=== PATIENT | female | born 1975 | race Caucasian/White ===

== ENCOUNTER → 2017-08-02 13:40 | Outpatient (CLI) | payer BC, SELFPAY ==
--- NOTE | 2017-08-02 13:40 | DT_ITS ---
This patient was seen during an EMR downtime July 31, 2017 - August 07, 2017. This patient may have a combination of paper and electronic documentation or all paper documentation. All documentation is viewable within the e-chart portion of [employer] for each patient visit.
== END ==
PROVIDERS: Family Provider Family Medicine; PCP Family Medicine; Visit Provider Family Medicine
DX: Z01.84 Encounter for antibody response examination (principal)
CPT/HCPCS: 36415; 86787

== ENCOUNTER → 2017-08-23 10:09 | Outpatient (CLI) | payer BC, SELFPAY ==
[2017-08-24 16:28] LABS: Mumps Antibody,IgG < 9.0 AU/mL (Immune >10.9); Rubeola IgG Ab 39.6 AU/mL (Immune >29.9)
== END ==
PROVIDERS: Family Provider Family Medicine; PCP Family Medicine; Visit Provider Family Medicine
DX: Z01.84 Encounter for antibody response examination (principal)
CPT/HCPCS: 36415; 86735; 86765

== ENCOUNTER 2020-03-07 01:49 | Emergency (ER) | payer BC, SELFPAY ==
[2020-03-07 01:50] VITALS: BP 112/78; PULSE 114; RESP 18; TEMP 36.5; O2SAT 98; BMI 31.8
--- NOTE | 2020-03-07 01:56 | ED.DCSUM_ITS ---
History of Present Illness Chief Complaint: Upper Extremity Injury Informant: Patient Narrative: Patient stated she injured her shoulder. She states she was doing laundry tonight and lost her balance and fell into the wall. She stated she jammed her right shoulder. She is having pain in the right shoulder with movement. No injury elsewhere. She stated she has had a few alcoholic drinks tonight. Current severity is moderate. Worse by movement. [place] a pop. No previous shoulder injury. No home treatment. Past Medical History - Allergies and Home Meds Allergies/Adverse Reactions: Allergies No Known Allergies Allergy (Verified 03/07/20 01:49) Primary Care Physician: Hang Jane DO [STAFF PHYSICIAN] - Prior records reviewed: Yes Past Medical History: - - Reviewed Surgical History: - - Reviewed Lives: With Family Smoking Status: Current every day smoker Alcohol: Occasional Drugs: None Review of Systems General: Denies: Chills, Fever, Sweats Eyes: Denies: Visual changes - bilaterally, Diplopia ENT: Denies: Rhinorrhea, Sore throat Cardiovascular: Denies: Chest pain, Palpitations Respiratory: Denies: Dyspnea, Cough, Dyspnea on exertion Gastrointestinal: Denies: Abdominal pain, Nausea, Vomiting, Diarrhea, Melena, Hematochezia Genitourinary: Denies: Dysuria, Hematuria, Frequency Musculoskeletal: Reports: Extremity Pain. Denies: Back pain Skin: Denies: Rash, Wounds Neurological: Denies: Headache, Weakness, Numbness Physical Exam Vital Signs/Narrative: Vital Signs Temp Pulse Resp BP Pulse Ox 03/07/20 01:50 97.7 F L 114 H 18 112/78 98 General: Well nourished, Well developed, No Acute Distress Head: Normocephalic, Atraumatic Eyes: Perrl, EOMI ENT: Moist mucous membranes, No rhinorrhea Neck: Supple, Nontender Cardiovascular: Regular rate, Regular rhythm, No murmurs Respiratory: No distress, CTA bilaterally, Chest nontender Abdomen: Soft, Nontender, Nondistended, Normal bowel sounds Back: Nontender, Normal Inspection Extremities: No edema, Tenderness - Numbness in the right shoulder deltoid diffusely. No tenderness of the clavicle or other structures in the neck. Distal arm exam normal. Decreased range of motion of the shoulder secondary to pain. Skin: Normal color, No rash Neurological: Alert, Oriented x3, Cranial nerves II-XII grossly intact, Normal Strength, Normal Sensation Psychological: Normal affect, Normal Mood Diagnostic/Tx/Re-eval - Medical Decision Making Give injection of morphine and ice pack. X-ray of the right shoulder obtained. In my interpretation the x-ray shows a humeral head fracture. Patient given a sling and swath and will follow up with orthopedics as an outpatient. Will be given Percocet for home. Will rest and ice ED Disposition - Plan for ED Patient: Disposition: Home or Assisted Living Diagnosis: Shoulder fracture, right Instructions: ED Fracture, Shoulder Prescriptions: Oxycodone HCl/Acetaminophen [Percocet 5/325] 1 - 2 tab PO Q6H PRN PRN 3 Days #12 tab PRN Reason: Pain Prescription Printed Referrals: Hang Jane DO [STAFF PHYSICIAN] -
--- NOTE | 2020-03-07 02:06 | RAD_ITS ---
HISTORY: right shoulder injury after fall. ADDITIONAL HISTORY: None provided. EXAMINATION/TECHNIQUE: XR Shoulder Min 2 Views Right Number of images including paperwork: 2 COMPARISON: None FINDINGS: BONES: Mildly impacted fracture of the surgical neck of the right humerus. Lucency in the region of the greater tuberosity, not well evaluated due to superimposition on both views but suggestive of nondisplaced fracture.. JOINTS: No subluxation. SOFT TISSUES: No distinct foreign body. RAD/Shoulder min 2 Views IMPRESSION: Right proximal humerus fracture. at 0237 Reported and signed by: Aaliyah Flowers MD Electronically Signed: Aaliyah Flowers MD at 2:37 EST Tel , Service support ,
[2020-03-07] MEDS: Morphine 4 MG/ML Syringe 2 MG IM (02:24)
[2020-03-07 03:08] VITALS: BP 109/74
== END 2020-03-07 03:09 | disposition home or self-care (01) ==
LOC: ED 02:23
PROVIDERS: Emergency Provider Emergency Medicine; PCP Family Medicine
DX: S42.291A Other displaced fracture of upper end of right humerus, initial encounter for closed fracture (principal); W01.198A Fall on same level from slipping, tripping and stumbling with subsequent striking against other object, initial encounter; Y93.E2 Activity, laundry; Y92.9 Unspecified place or not applicable; Y99.9 Unspecified external cause status; F17.200 Nicotine dependence, unspecified, uncomplicated
CPT/HCPCS: 73030; 96372; 99282

== ENCOUNTER 2020-03-12 14:07 | Observation (INO) | payer BC, SELFPAY ==
[2020-03-12] VITALS (10 sets, daily range): BP systolic 106–130; BP diastolic 60–98; PULSE 72–108; RESP 16–18; TEMP 36.1–37.2; O2SAT 96–98; BMI 34.0; BMI 33.8; BMI 33.9
[2020-03-12] MEDS: Lactated Ringers 1,000 ML 100 ML IV ×3 (10:35→16:23)
--- NOTE | 2020-03-12 11:30 | RAD_ITS ---
STUDY: X-RAY - RIGHT HUMERUS REASON FOR EXAM: ORIF of right humeral fracture. TECHNIQUE: 3 intraoperative images of the humerus. COMPARISON: Radiographs 03/09/2020. FINDINGS: There is an orthopedic plate and screws transfixing a proximal humeral fracture. 62 seconds of fluoroscopy time was used. Electronically Signed: Jaguar Bond MD at 14:47 EST Tel , Service support , RAD/Humerus min 2 Views
--- NOTE | 2020-03-12 11:33 | PCM.HP.BLA ---
History and Physical Date of Admission: 03/12/20 Intake Intake Visit Reasons: RIGHT SHOULDER Allergies No Known Allergies Allergy (Verified 03/07/20 01:49) [facility] Social History Smoking Status: Current every day smoker HPI RIGHT SHOULDER: Details: Parts of this documentation were recorded by a scribe, this documentation accurately reflects the service provided and the decisions made by me, Dr. Hang Jane, DO 03/09/20 1400. FORTINO REBOLLAR is a 44 year old F NEW patient here today for right shoulder fx. DOI: 03/07/2020. States that she had some drinks and she was putting her clothes on and lost her balance and fell into the fall with all of her weight on the right anterior shoulder. She states that she heard a crack over her shoulder and had instant pain. Denies numbness, tingling or other associated symptoms. SHe is have generalized shoulder pain with any shoulder movement. She is also having right elbow pain. Ortho Exam General General: Yes no acute distress Neurologic: Yes alert, Yes oriented x3 Psychologic: Yes reasonable and appropriate Right Shoulder Date of injury: 03/07/20 Skin/Wound: Yes ecchymosis, No erythema, No swelling SHOULDER: neurovascularly intact including axillary + swelling good pulses throughout upper right extremity Supplemental Info 03/09/2020 x-ray right shoulder displaced three-part proximal humerus fracture surgical neck greater tuberosity with Valgus angulation and medial displacement Assessment & Plan Problems 1. Closed displaced fracture of surgical neck of right humerus, unspecified fracture morphology, initial encounter S42.211A 2. Closed displaced fracture of greater tuberosity of right humerus, initial encounter S42.251A Plan Personally reviewed patients x-rays of the right shoulder. Patient educated that she has displaced impacted surgical neck fx of the humerus along with a displaced fx of the greater tuberosity. Educated that she does not have any fx of the elbow. Patient educated that it is recommended that this fx is surgically repaired because she will have better ROM. Educated that if she does not have surgery then she will be at a increased risk of pain throughout life, and decreased ROM. Reviewed the pre-operative plans with the patient. Risks and benefits of the procedure were fully explained, including but not limited to infection, neurovascular injury, continued pain, arthritis, stiffness, need for further surgery, re-injury, DVT, PE, general risks of anesthesia, and loss of limb or life. The patient understands all the risks and does wish to proceed with written consent for right humerus ORIF, repair as indicated. She will be able to preform ROM after surgery. She will need to be in PT after surgery. Instructed to stop NSAIDs now in anticipation for surgery 03/12/2020. Follow up 2 weeks post op or sooner if pain, swelling, numbness or associated symptoms, or concerns develop. All questions answered. Patient in agreement of plan. Orders Orders: Shoulder min 2 Views Today S42.301A Elbow 2 Views Today S49.91XA Coding Diagnoses Closed displaced fracture of surgical neck of right humerus, unspecified fracture morphology, initial encounter S42.211A ??Encounter type: initial encounter ??Fracture alignment: displaced ??Fracture morphology: unspecified fracture morphology ??Fracture type: closed ??Laterality: right Closed displaced fracture of greater tuberosity of right humerus, initial encounter S42.251A ??Encounter type: initial encounter ??Fracture alignment: displaced ??Fracture type: closed ??Laterality: right I have re-examined the patient. There are no clinical changes since date of exam Procedure Criteria Procedure Type: Elective COVID Risk Discussion: The surgeon/proceduralist and patient have discussed in detail the risk of exposure to and/or potential harm posed by the COVID-19 virus with having a surgery/procedure at this time versus the risk of delaying the surgery/procedure. It is not possible to know either the risk of delaying the surgery or procedure or chance of getting an infection with perfect accuracy, but a joint decision was made between the patient and the surgeon/proceduralist to proceed at this time with the scheduled surgery/procedure as indicated on the consent form.
[2020-03-12] MEDS: Cefazolin 2 GM in 0.9% Normal Saline 100 ML IV (11:35)
--- NOTE | 2020-03-12 14:10 | OP.PCM_ITS ---
Report of Operation Date of Procedure: 03/12/20 Description of Surgical Findings:: Preoperative diagnosis: Right displaced surgical neck greater tuberosity fracture Postoperative diagnosis: Same Procedure: Open reduction internal fixation right proximal humerus Implants: Synthes proximal humerus plate Anesthesia: General with interscalene block EBL: 200 Complications: None Condition: Stable to PACU Indication for procedure: 44-year-old female patient who was drinking and fell onto her right shoulder. X-rays demonstrated the aforementioned fracture we did discuss operative versus nonoperative intervention risk benefits and alternatives were reviewed including risk of bleeding infection nerve, artery, b one, tissue damage, blood clot need for further surgery and continued pain, stiffness. We also discussed expected postoperative course and postoperative limitations. Procedure: Patient was met in the preoperative holding area once again the operative extremity was identified by both patient and physician was marked. patient met anesthesia brought back to the operating room will car transfer the operative table in supine position. anesthesia was started. The patient was then positioned in a beachchair configuration . we brought in fluoroscopy to ensure that AP and Y projections could be obtained through the table. patient was then patient draped in the usual sterile fashion and a timeout was called into the proper patient procedure and extremity are being contemplated. A 10 blade scalpel was used to make a incision for a deltopectoral approach electrocautery was used for subcutaneous dissection until the deltopectoral interval was reached . A Nixon was used to elevate the deltoid off of the proximal humerus the clavipectoral fascia was incised and a Guo retractor was placed beneath the conjoined tendon with attention not to retract too hard to injure the musculocutaneous nerve. The fracture was then visualized and with forward flexion in the sagittal plane and traction reduction was performed. K wires were placed in the proximal humeral head to act as joysticks to aid in the reduction as well we then positioned a plate laterally temporarily fixed it with K wires and under fluoroscopic visualization placed a cortical screw in the shaft we then placed locking screws in the proximal humeral head an additional 2 cortical screws were placed in the shaft this was checked in both AP and lateral projections to ensure screw placement within the humeral head and shaft. The air was no need for additional FiberWire fixation of the rotator cuff as the remainder of the cuff remained intact this point the wound was thoroughly irrigated with Betadine rinse and several liters of Pulsavac irrigation followed by an Aricept rinse which was allowed to sit and also washed with irrigation we then closed the subcutaneous tissue with 0-0 Vicryl followed by 2-0 Vicryl and lu in the skin followed by Xeroform 4 x 4 ABD and [place] she was placed in a simple sling and was brought back to the PACU in stable condition all counts were correct.
[2020-03-12] MEDS: Cefazolin 1 GM/50 ML BAG IV ×2 (15:36→22:08)
[2020-03-12] MEDS: HYDROmorphone 0.5 MG/0.5 ML SYRINGE IV ×2 (17:41→20:18)
[2020-03-12] MEDS: HYDROcodone Bitartrate/Apap 5/325 Tablet PO (19:10)
[2020-03-12] MEDS: Ondansetron 4 MG/2 ML Vial IV (20:22)
[2020-03-12] MEDS: Ibuprofen 600 MG Tablet PO (22:08)
[2020-03-12] MEDS: HYDROmorphone 1 MG/ML Syringe 1.5 MG IV (22:13)
[2020-03-13 00:28] VITALS: BP 121/62; PULSE 88; RESP 16; TEMP 37.3; O2SAT 97
[2020-03-13] MEDS: HYDROmorphone 1 MG/ML Syringe 1.5 MG IV ×2 (01:25→04:43)
[2020-03-13] MEDS: HYDROcodone Bitartrate/Apap 5/325 Tablet PO (02:50)
[2020-03-13 04:31] VITALS: BP 110/62; PULSE 78; RESP 16; TEMP 36.7; O2SAT 96
[2020-03-13] MEDS: Cefazolin 1 GM/50 ML BAG IV ×2 (06:06→08:29)
[2020-03-13] MEDS: Aspirin 81 MG TAB.CHEW PO (06:07)
[2020-03-13] MEDS: Ibuprofen 600 MG Tablet PO (06:07)
--- NOTE | 2020-03-13 07:45 | PCM.PN.ORT ---
Subjective: Seen and examined doing better today had pain control issues last night better now with medication adjustments no nausea vomiting shortness of breath chest pain denies any numbness in her right upper extremity admits to a numb spot on her tongue. Passing gas and eating food okay - Physical Exam Vitals/I&O's: Vital Signs Temp Pulse Resp BP Pulse Ox 98.1 F 78 16 110/62 96 03/13/20 04:31 03/13/20 04:31 03/13/20 04:31 03/13/20 04:31 03/13/20 04:31 Oxygen Delivery Method Room Air Weight: 198 lb 6.656 oz Body Mass Index (BMI) 33.8 Intake and Output for Last 24 Hours 03/11/20 03/12/20 03/13/20 23:59 23:59 23:59 Intake Total 2165 / 2165 384.17 / 384.17 Output Total 5 / 5 Balance 2160 / 2160 384.17 / 384.17 General: Alert, Oriented x3, Cooperative, No apparent distress Extremities: - - Right upper extremity swollen compartments soft intact sensation over axillary nerve intact contraction of deltoid no gross motor or sensory deficits distally palpable radial pulse intact sensation to light touch all dermatomes. No good morning has just phone calls last significant swelling in hand Microbiology Past 72 Hours 03/11/20 09:42 Interface Orders SARS-CoV-2 Antigen (Rapid) - Final Current Medications Hydrocodone Bitart/Acetaminophen (Hydrocodone Bitartrate/Apap 5/325 Tablet) 2 tablet PO Q6H PRN PRN PRN Reason: Pain Score 4-10 Last Admin: 03/13/20 02:50 Dose: 2 tablet Documented by: Aspirin (Aspirin 81 Mg Tab.Chew) 81 mg PO BIDCM [facility] Last Admin: 03/13/20 06:07 Dose: 81 mg Documented by: Hydromorphone HCl (Hydromorphone 1 Mg/Ml Syringe) 1.5 mg IV Q3H PRN PRN PRN Reason: Pain Score 1-10 Last Admin: 03/13/20 04:43 Dose: 1.5 mg Documented by: Lactated Ringer's () 1,000 mls @ 100 mls/hr IV .Q10H [facility] Last Infusion: 03/13/20 06:36 Dose: 15 mls/hr Documented by: Ibuprofen (Ibuprofen 600 Mg Tablet) 600 mg PO Q8 [facility] Last Admin: 03/13/20 06:07 Dose: 600 mg Documented by: Multivitamins/Minerals (Multivitamins,Ther W-Minerals Tablet) 1 tablet PO DAILYCM [facility] Ondansetron HCl (Ondansetron 4 Mg/2 Ml Vial) 4 mg IV Q6H PRN PRN PRN Reason: Nausea Last Admin: 03/12/20 20:22 Dose: 4 mg Documented by: Sodium Chloride (0.9% Saline Lock 10 Ml Syringe) 10 - 40 ml IV UD PRN PRN Reason: SALINE FLUSH Zolpidem Tartrate (Zolpidem Tartrate 5 Mg Tablet) 5 mg PO QHS PRN PRN PRN Reason: SLEEP Medical Necessity - Tobacco Use Smoking Status: Current every day smoker Tobacco Use: Cigarettes Assessment/Plan Postoperative day #1 right proximal humerus ORIF Neurovascular intact pain controlled now we will have physical therapy see her start with active assisted range of motion progressed to active as tolerated no weightbearing right upper extremity encourage at least pendulum exercises elbow range of motion initially and progress as tolerated will follow-up in the office in 2 weeks for a wound check
--- NOTE | 2020-03-13 08:00 | PCM.DC.ORTHO ---
Discharge Diet: No Restrictions Additional Instructions: Keep dressing on clean dry and intact for 72 hours postop. Do not get incision wet during this time or dressing. After 72 hours may remove dressing and begin showering daily with antibacterial soap however do not completely submerge incision in tub for 3 weeks. Do not remove Steri-Strips underneath dressing. Nonweightbearing right upper extremity begin with pendulum exercises to shoulder and elbow range of motion immediately 3 times a day when able progress to active assisted range of motion then active range of motion. Do not push pull or lift anything with operative extremity encourage finger and wrist elbow and shoulder range of motion as tolerated. Should begin physical therapy early next week will have office contact you to coordinate. Do not take medications outside of what was prescribed without discussion with provider. Encourage fluid intake and small amount of food with pain medication to avoid constipation. If constipation does occur with stool softener that was ordered recommend milk of magnesia [id number]. Follow-up with Dr. Jane 2 weeks call with any questions or concerns. Allergies/Adverse Reactions: Allergies No Known Allergies Allergy (Verified 03/12/20 10:20) Medications to take at Discharge Acetaminophen [Tylenol Extra Strength] 500 - 1,000 mg PO Q6H PRN PRN 03/09/20 Multivitamin with Minerals [Multiple Vitamin] 1 ea PO DAILY 03/09/20 oxycodone 5 mg tablet 5 - 10 mg PO Q6H PRN #56 tab 03/09/20 Acetaminophen [Tylenol Extra Strength] 1,000 mg PO Q6H PRN #100 tab 03/13/20 Aspirin [Aspirin EC] 81 mg PO BID #30 tablet. 03/13/20 Docusate Sodium [Colace] 100 mg PO BID #60 cap 03/13/20 Ondansetron HCl [Zofran] 4 mg PO Q6H PRN PRN 5 Days #15 tab 03/13/20 RX: Oxycodone [Oxyir] 5 mg PO Q4H PRN PRN #60 tablet 03/13/20 The following prescriptions were given: Aspirin [Aspirin EC] 81 mg PO BID #30 tablet. Docusate Sodium [Colace] 100 mg PO BID #60 cap Transmission Status: Pending to [facility] RX: Oxycodone [Oxyir] 5 mg PO Q4H PRN PRN #60 tablet PRN Reason: Pain Score 6-10 Transmission Status: Sent to [facility] Acetaminophen [Tylenol Extra Strength] 1,000 mg PO Q6H PRN #100 tab Transmission Status: Pending to [facility] Ondansetron HCl [Zofran] 4 mg PO Q6H PRN PRN 5 Days #15 tab PRN Reason: Nausea Transmission Status: Pending to [facility] Primary Care Physician: Saqib Syed MD [Primary Care Provider] - Test Results: Test results from this visit will be discussed in further detail at your follow-up appointment, if applicable. Please Follow Up With: Hang Jane DO When: 2 weeks
[2020-03-13 08:19] VITALS: BP 100/56; PULSE 69; RESP 16; TEMP 36.7; O2SAT 97
[2020-03-13] MEDS: oxyCODONE 5 MG Tablet 10 MG PO (08:25)
[2020-03-13] MEDS: Multivitamins,Ther W-Minerals Tablet 1 TABLET PO (08:29)
[2020-03-13] MEDS: Docusate Sodium 100 MG Capsule PO (08:29)
== END 2020-03-13 11:19 | disposition home or self-care (01) ==
LOC: SDC 14:23 → MS3 14:23
PROVIDERS: Admitting Provider Orthopaedic Surgery; PCP Family Medicine; Referring Provider Orthopaedic Surgery; Visit Provider Orthopaedic Surgery
PROC: (CPT 23615; principal; 2020-03-12 11:10)
DX: S42.251A Displaced fracture of greater tuberosity of right humerus, initial encounter for closed fracture (principal); W18.30XA Fall on same level, unspecified, initial encounter; Y93.89 Activity, other specified; Y92.9 Unspecified place or not applicable; Y99.9 Unspecified external cause status; S42.211A Unspecified displaced fracture of surgical neck of right humerus, initial encounter for closed fracture; Z20.828 Contact with and (suspected) exposure to other viral communicable diseases; F17.210 Nicotine dependence, cigarettes, uncomplicated
CPT/HCPCS: 01630; 23615; 64450; 73060; 76000; 87426; 96361; 96365; 96366; 96375; 96376; 97166; 99218; 99251; 99406; C1713; C9803; J7120; G0378; G0379; G0463; J2405

== ENCOUNTER 2020-05-21 10:00 | Outpatient (RCR) | payer BC, SELFPAY ==
[2020-03-12 16:29] VITALS: BMI 33.8
--- NOTE | 2020-03-24 10:36 | HP.PTEVAL_ITS ---
Patient's Visit Information FORTINO REBOLLAR is a 44 year old F referred to Physical Therapy by Dr. Hang Jane DO with a diagnosis of R proximal humerus ORIF. Date of Evaluation: 03/17/20 Physical Therapist: Abel Sharma DPT - Visit Plan Frequency: 2x /Week Duration: 4-6 Weeks Plan: Start with AAROM exercises progressing further ROM as tolerated. Progress To AROM as able. May use ice for pain control if needed. - Subjective Pt. is here today for her initial evaluation with diagnosis of R proximal humerus ORIF. DOS 03/12/20. Pt. reports falling and resulting in a proximal humeral fracture. Pt. arrives today with sling on. Pt. reports spacing her pain medication out, but has been tolerating her surgery well. She denies N/T, no radiating pain. 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 Pt. is currently NWBing on her R UE. Pt. has been doing her HEP prescribed by her doctor without issues, except with is having some issues with wall walks. Pt. is hopeful to progress her ROM and get back to all recreational activities without limitations. - Pain R shoulder Pain Intensity (Out of 10): 2 Pain Intensity Range: 2, 6 - Objective POSTURE: Pt. keeps her R UE in guarded posture. Anterior translated shoulder. PALPATION: Pt. has tenderness at anterior shoulder, normal healing incision noted. NEURO: normal throughout. Normal sensation, normal DTR bilaterally. ROM: PROM: R shoulder- flexion 135deg, abd 110deg, ER at side 20deg, IR not tested. AAROM: R shoulder- flexon 145deg, abd 110deg, functional IR sacrum. - Goals Goal 1:: LTG: pt. to be I with HEP. Goal 2:: STG: Pt. to have full AAROM of her R shoulder without incerase in symptoms. Goal Time Frame: 2-4 Weeks Goal 3:: LTG: Pt. to have full R shoulder AROM without increase in symptoms. Goal Time Frame: 4-6 Weeks Goal 4:: STG: pt. to sleep throughout the night without increase in symptoms. Goal Time Frame: 2-4 Weeks Goal 5:: LTG: Pt. to have increased R UE strength to 4+/5 throughout with out increase in symptoms. Goal Time Frame: 6-8 Weeks - Rehabilitation Potential Physical Therapy Diagnosis: Pt. has signs and symptoms consistent with R proximal humerus fracture with subsequent ORIF. Pt. has subsuquent hypombility, pain and weakness. Pt. is wearing her sling as prescribed. Pt. would benefit from PT to work on her ROM progresing to AAROM as tolerated. Rehabilitation Potential: Excellent - Anticipated Interventions Patient/Client Instruction: Educate patient on: Condition, Plan of Care, Risk Factors, Benefits of Fitness Program For the Purpose of:: To foster healthy habits, To improve decision making, To facilitate caregiver knowledge, To improve self management, To prevent re- injury, To improve ability to perform tasks related to life management, To impro ve tolerance to ADL's Therapeutic Exercise to Include: Strength training, Power training, Endurance training, Postural training, Flexibilty training, Passive ROM, Active ROM, Scapular Strength/Stabilization For the Purpose of:: To decrease pain, To decrease swelling/inflammation, To increase ROM, To improve nutrient delivery to tissue, To increase oxygenation perfusion, To improve muscle performance and motor function, To improve health of tissue, To decrease soft tissue restriction, To increase flexibility/ROM Cryotherapy (ice pack, ice massage): Yes For the Purpose of:: To decrease pain, To decrease swelling/inflammation, To increase ROM, To improve nutrient delivery to tissue Thank you for the opportunity to evaluate your patient. For Medicare and Medicare HMO plans, please review the plan of care and approve it. It will need to be FAXED BACK to us at [phone] for Medicare purposes. For Medicare only, by signing this I certify the plan of care. Please let me know if there are questions or concerns regarding this plan of care. Physician Signatur e: Date:
--- NOTE | 2020-04-17 12:44 | HP.PTREVAL_ITS ---
Dr. Hang Jane, DO, It has been my pleasure to treat FORTINO REBOLLAR over the last 6 visits for R proximal humerus ORIF. Please see the progress note below for an update on the physical therapy plan of care! Subjective: Pt. reports being frustrated with her continued limited motion. Pt. report having pain in GH joint with over head motion. Objective/Function: AROM: R shoulder- 100deg, abd 100deg, Functional ER C4 aberrant motion, IR L5. PROM: flexion 165deg, abd 170deg, ER at 9d0eg 75deg, IR at 90deg 45deg. PROM measured after stretching, initially stiff. Pt. both conerned about ROM and strength. I talked to her that yes strength is important, but we need tomake sure to progress and restor as much ROM as we can currently. She erports understanding. I talked to her about progressing active use of her R shoulder, but to not really load yet. Pt. consents. Plan Plan: Pt. is slowly progressing, but would like her to be a bit more aggressive with her stretching at home, but to avoid pain at her healing site. She consents. Pt. desires to continue with PT x1 per week due to her work scheduled, but I did advise her that she needs to be very consistent with stretching at home. Goals Goal 1:: LTG: pt. to be I with HEP. Goal Progress: Progressing Goal 2:: STG: Pt. to have full AAROM of her R shoulder without incerase in symptoms. Goal Time Frame: 2-4 Weeks Goal Progress: Progressing Goal 3:: LTG: Pt. to have full R shoulder AROM without increase in symptoms. Goal Time Frame: 4-6 Weeks Goal Progress: Progressing Goal 4:: STG: pt. to sleep throughout the night without increase in symptoms. Goal Time Frame: 2-4 Weeks Goal Progress: Progressing Goal 5:: LTG: Pt. to have increased R UE strength to 4+/5 throughout with out increase in symptoms. Goal Time Frame: 6-8 Weeks Goal Progress: Progressing Anticipated Interventions Patient/Client Instruction: Educate patient on: Condition, Plan of Care, Risk Factors, Benefits of Fitness Program For the Purpose of:: To foster healthy habits, To improve decision making, To facilitate caregiver knowledge, To improve self management, To prevent re- injury, To improve ability to perform tasks related to life management, To improve tolerance to ADL's Therapeutic Exercise to Include: Strength training, Power training, Endurance training, Postural training, Flexibilty training, Passive ROM, Active ROM, Scapular Strength/Stabilization For the Purpose of:: To decrease pain, To decrease swelling/inflammation, To increase ROM, To improve nutrient delivery to tissue, To increase oxygenation perfusion, To improve muscle performance and motor function, To improve health of tissue, To decrease soft tissue restriction, To increase flexibility/ROM Cryotherapy (ice pack, ice massage): Yes For the Purpose of:: To decrease pain, To decrease swelling/inflammation, To increase ROM, To improve nutrient delivery to tissue Please do not hesitate to contact me at [phone] by phone or if you have questions or concerns regarding this new plan of care! Sincerely, MICAH ThomasT
== END 2020-05-21 19:00 | disposition home or self-care (01) ==
LOC: PT 10:00
PROVIDERS: PCP Family Medicine; Referring Provider Orthopaedic Surgery; Visit Provider Orthopaedic Surgery
DX: Z47.89 Encounter for other orthopedic aftercare (principal)
CPT/HCPCS: 97110; 97161

== ENCOUNTER 2021-01-29 18:04 | Emergency (ER) | payer BC, SELFPAY ==
[2021-01-29 18:04] VITALS: BP 163/96; PULSE 88; RESP 16; TEMP 36.1; O2SAT 100; BMI 33.5
[2021-01-29 20:05] VITALS: PULSE 84; RESP 16
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
== END 2021-01-29 20:14 | disposition home or self-care (01) ==
LOC: ED 20:06
PROVIDERS: Emergency Provider Student in an Organized Health Care Education/Training Program; PCP Family Medicine
DX: R07.89 Other chest pain (principal); S06.0X9A Concussion with loss of consciousness of unspecified duration, initial encounter; F17.200 Nicotine dependence, unspecified, uncomplicated; V89.2XXA Person injured in unspecified motor-vehicle accident, traffic, initial encounter; Y92.410 Unspecified street and highway as the place of occurrence of the external cause
CPT/HCPCS: 99282

== ENCOUNTER → 2021-02-02 09:42 | Outpatient (CLI) | payer BC, SELFPAY ==
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
--- NOTE | 2021-02-02 10:00 | RAD_ITS ---
STUDY: X-RAY - BILATERAL RIBS REASON FOR EXAM: Female, 45 years old. CHEST WALL PAIN TECHNIQUE: 4 view(s) of the ribs. COMPARISON: None. FINDINGS: Normal visualized ribs without a demonstrated fracture. The visualized lungs are clear and expanded. Normal heart, mediastinum and pulmonary janet. RAD/Ribs Bilat 3V No CXR IMPRESSION: Normal x-ray examination of the bilateral ribs. Electronically Signed: Juan Padilla MD at 9:37 EST Tel , Service support ,
--- NOTE | 2021-02-02 10:00 | RAD_ITS ---
STUDY: X-RAY - LEFT CLAVICLE REASON FOR EXAM: Female, 45 years old. CHEST WALL PAIN TECHNIQUE: 2 view(s) of the clavicle. COMPARISON: None. FINDINGS: Normal clavicle. Normal acromioclavicular articulation. Normal visualized sternoclavicular articulation. Normal visualized pulmonary apex. RAD/Clavicle IMPRESSION: Normal x-ray examination of the clavicle. Electronically Signed: Juan Padilla MD at 15:28 EST Tel , Service support ,
--- NOTE | 2021-02-02 10:00 | RAD_ITS ---
STUDY: X-RAY - RIGHT CLAVICLE REASON FOR EXAM: Female, 45 years old. CHEST WALL PAIN TECHNIQUE: 2 view(s) of the clavicle. COMPARISON: None. FINDINGS: Normal clavicle. Normal acromioclavicular articulation. Normal visualized sternoclavicular articulation. Normal visualized pulmonary apex. RAD/Clavicle IMPRESSION: Normal x-ray examination of the clavicle. Electronically Signed: Juan Padilla MD at 15:28 EST Tel , Service support ,
== END ==
PROVIDERS: PCP Family Medicine; Referring Provider Family Medicine; Visit Provider Family Medicine
DX: R07.89 Other chest pain (principal); V89.2XXA Person injured in unspecified motor-vehicle accident, traffic, initial encounter
CPT/HCPCS: 71110; 71120; 72050; 73000

== ENCOUNTER 2021-03-25 08:34 | Outpatient (CLI) | payer BC, SELFPAY ==
[2021-03-25 10:14] LABS: Absolute Lymphocyte Count 2.04 X10^3/uL (0.83-4.51); Absolute Neutrophil Count 4.6 X10^3/uL (2.0-7.7); Basophil# 0.08 X10^3/uL; Eosinophil# 0.41 X10^3/uL; Eosinophils% 5.3 % (0-5); Hematocrit 44.5 % (37-47); Hemoglobin 15.1 g/dL (12.0-15.0); Lymphocyte # 2.04 X10^3/ul (0.83-4.51); Lymphocyte % 26.3 % (19-41); Mean Corp Hgb Conc 33.9 g/dL (32-36); Mean Corpuscular Hgb 30.3 pg (27.0-32.0); Mean Corpuscular Volume 89.4 fL (81-99); Mean Platelet Vol. 11.2 fl (6.2-12.0); Monocyte# 0.63 X10^3/uL; Monocyte% 8.1 % (0-10); NRBC Flagged by Analyzer 0 % (0-5); Neutrophil # 4.57 X10^3/uL (2.7-7.7); Platelet Count 250 K/mm3 (150-450); RBC Distribution Width CV 13.2 % (11.6-14.6); RBC Distribution Width SD 43.7 fl (35.1-43.9); Red Blood Count 4.98 M/mm3 (4.2-5.4); White Blood Count 7.8 K/mm3 (4.4-11.0)
[2021-03-25 11:01] LABS: AST(SGOT) 11 U/L (15-37); Alanine Aminotransfer ALT/SGPT 19 U/L (13-56); Albumin, Serum 3.6 g/dL (3.2-5.0); Alkaline Phosphatase 93 U/L (45-117); Anion Gap 7 (5-15); BUN 14 mg/dL (7-18); BUN/Creat Ratio 18.5 RATIO (10-20); Calcium,Total 8.9 mg/dL (8.5-10.1); Chloride 108 mmol/L (98-107); Creatinine, Serum 0.76 mg/dL (0.55-1.02); EST Glomerular Filtration Rate 88 mL/min (>60); Est Glom Filt Rate - Afr Amer 107 mL/min (>60); Globulin 3.6 g/dL (2.2-4.2); Glucose 92 mg/dL (74-106); Potassium 4.7 mmol/L (3.5-5.1); Protein, Total 7.2 g/dL (6.4-8.2); Sodium Level 138 mmol/L (136-145); Thyroid Stim Hormone (TSH) 1.71 uIU/mL (0.358-3.74)
== END 2021-03-25 23:59 | disposition short-term general hospital (02) ==
LOC: MFPLAB 08:37
PROVIDERS: PCP Family Medicine; Referring Provider Family Medicine; Visit Provider Family Medicine
DX: R53.83 Other fatigue (principal)
CPT/HCPCS: 36415; 80053; 84443; 85025

== ENCOUNTER → 2023-08-23 | Outpatient (CLI) | payer BC, SELFPAY ==
[2023-08-23 10:45] LABS: Anion Gap 4 (5-15); BUN 14 mg/dL (7-18); BUN/Creat Ratio 19.9 RATIO (10-20); Calcium,Total 8.9 mg/dL (8.5-10.1); Chloride 109 mmol/L (98-107); Cholesterol 268 mg/dL (200); EST Glomerular Filtration Rate 95 mL/min (>60); Est Glom Filt Rate - Afr Amer 115 mL/min (>60); Glucose 82 mg/dL (74-106); High Density Lipoprotein 54 mg/dL; Potassium 4.4 mmol/L (3.5-5.1); Sodium Level 137 mmol/L (136-145); Triglycerides 114 mg/dL; Very Low Density Lipoprotein 23 mg/dL (5-40)
== END | disposition home or self-care (01) ==
LOC: MFPLAB 09:25
PROVIDERS: PCP Family Medicine; Visit Provider Nurse Practitioner Family
DX: Z13.1 Encounter for screening for diabetes mellitus (principal); Z13.220 Encounter for screening for lipoid disorders
CPT/HCPCS: 36415; 80048; 80061

== ENCOUNTER → 2023-11-08 | Outpatient (CLI) | payer BC, SELFPAY ==
[2023-11-13 15:07] LABS: HPV APTIMA, High Risk Negative (Negative)
== END | disposition home or self-care (01) ==
LOC: LABSPEC 16:30
PROVIDERS: PCP Family Medicine; Referring Provider Nurse Practitioner Family; Visit Provider Nurse Practitioner Family
DX: Z12.4 Encounter for screening for malignant neoplasm of cervix (principal)
CPT/HCPCS: 87624; 88175; G0145

== ENCOUNTER → 2023-11-22 | Outpatient (CLI) | payer BC, SELFPAY ==
--- NOTE | 2023-11-22 14:05 | US_ITS ---
EXAM: US PELVIS TRANSABDOMINAL AND TRANSVAGINAL, COMPLETE CLINICAL INDICATION: menorrhagia TECHNIQUE: Transabdominal and transvaginal pelvic ultrasound was performed with grayscale and color Doppler imaging. Transvaginal imaging was used for better evaluation of the endometrium and adnexa. COMPARISON: No relevant prior studies available. FINDINGS: UTERUS/CERVIX: Retroflexed. 9.8 cm x 4.5 cm x 7.6 cm. There is no uterine mass. Normal 9 mm mildly echogenic endometrial stripe thickness. RIGHT OVARY: Unremarkable. 3.3 cm x 1.8 cm x 2 cm. Non-enlarged, normal echogenicity. Blood flow is present in the right ovary. LEFT OVARY: Unremarkable. 3.8 cm x 1.9 cm x 2.5 cm. Non-enlarged, normal echogenicity. There is a simple-appearing dominant follicle of 1.7 cm x 1.4 cm x 1.6 cm. Blood flow is present in the left ovary. FREE FLUID: None. BLADDER: Unremarkable as visualized. 5.9 cm x 2.4 cm x 6.9 cm, calculated volume of 49 cc. Wall is normal thickness for degree of distention. US/Pelvic w/ Transvaginal IMPRESSION: No suspicious findings. No visible fibroids. Normal endometrial stripe. Electronically Signed: Leelee Roman MD at 3:28 EDT ,
--- NOTE | 2023-11-22 14:05 | BI_ITS ---
MAMMOGRAPHY - BILATERAL SCREENING REASON FOR EXAM: Female, 48 years old. Routine annual screening examination. PERTINENT HISTORY: Grandmother with breast cancer. Aunts with breast cancer. TECHNIQUE: Digital bilateral breast fawn (3D mammographic acquisition) in the CC and MLO projections. 2-D mediolateral oblique (MLO) and craniocaudad (CC) views of both breasts were obtained. CAD: Full Field Digital Mammography with Computer Added Detection was performed. COMPARISON: None. Baseline examination. FINDINGS: Breast Composition: The breasts are heterogeneously dense, which may obscure small masses. There are no dominant masses or suspicious calcifications. Small benign appearing bilateral axillary lymph nodes. No other significant abnormalities are identified. BI/SCRN MAMM (CAD)W/FAWN BILAT IMPRESSION: Negative screening mammogram. Yearly followup mammogram recommended. (A) ASSESSMENT CATEGORY: BIRADS Category 2: Benign. A letter regarding these results will be sent to the patient by the facility within 30 days. Approximately 10% of breast cancers are not detected by mammography. A normal mammogram should not delay biopsy of a clinically suspicious abnormality. [id number] Electronically Signed: Jerald Portillo MD at 14:42 EDT ,
== END | disposition home or self-care (01) ==
PROVIDERS: PCP Family Medicine; Referring Provider Nurse Practitioner Family; Visit Provider Nurse Practitioner Family
DX: N92.0 Excessive and frequent menstruation with regular cycle (principal); Z12.31 Encounter for screening mammogram for malignant neoplasm of breast
CPT/HCPCS: 76830; 76856; 77063; 77067

== ENCOUNTER → 2023-12-25 | Outpatient (CLI) | payer BC, SELFPAY ==
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
[2023-12-25 18:12] LABS: Absolute Lymphocyte Count 2.34 X10^3/uL (0.83-4.51); Absolute Neutrophil Count 6.1 X10^3/uL (2.0-7.7); Basophil# 0.11 X10^3/uL; Basophil% 1.1 % (0-1); Eosinophil# 0.43 X10^3/uL; Eosinophils% 4.4 % (0-5); Hemoglobin 13.8 g/dL (12.0-15.0); Lymphocyte # 2.34 X10^3/ul (0.83-4.51); Lymphocyte % 24.1 % (19-41); Mean Corp Hgb Conc 32.9 g/dL (32-36); Mean Corpuscular Hgb 29.4 pg (27.0-32.0); Mean Corpuscular Volume 89.6 fL (81-99); Mean Platelet Vol. 11.4 fl (6.2-12.0); Monocyte# 0.68 X10^3/uL; NRBC Flagged by Analyzer 0 % (0-5); Neutrophil # 6.12 X10^3/uL (2.7-7.7); Neutrophil % 63.1 % (47-70); Platelet Count 234 K/mm3 (150-450); RBC Distribution Width CV 13.2 % (11.6-14.6); Red Blood Count 4.69 M/mm3 (4.2-5.4); White Blood Count 9.7 K/mm3 (4.4-11.0)
[2023-12-25 18:47] LABS: T4 Free Direct 0.87 ng/dL (0.76-1.46)
[2023-12-25 18:50] LABS: ALB/GLOB Ratio 1.2 RATIO (0.9-2.4); AST(SGOT) 7 U/L (15-37); Alanine Aminotransfer ALT/SGPT 18 U/L (13-56); Albumin, Serum 3.7 g/dL (3.2-5.0); Alkaline Phosphatase 90 U/L (45-117); Anion Gap 4 (5-15); BUN 13 mg/dL (7-18); Calcium,Total 9.1 mg/dL (8.5-10.1); Chloride 111 mmol/L (98-107); Creatinine, Serum 0.62 mg/dL (0.55-1.02); EST Glomerular Filtration Rate 110 mL/min (>60); Est Glom Filt Rate - Afr Amer 133 mL/min (>60); Globulin 3.1 g/dL (2.2-4.2); Glucose 85 mg/dL (74-106); Potassium 4.2 mmol/L (3.5-5.1); Protein, Total 6.8 g/dL (6.4-8.2); Sodium Level 139 mmol/L (136-145)
== END | disposition home or self-care (01) ==
LOC: MTLAB 16:54
PROVIDERS: Nurse Practitioner Family; PCP Family Medicine; Referring Provider Family Medicine; Visit Provider Family Medicine
DX: Z13.29 Encounter for screening for other suspected endocrine disorder (principal); Z13.1 Encounter for screening for diabetes mellitus; N92.0 Excessive and frequent menstruation with regular cycle; R10.9 Unspecified abdominal pain
CPT/HCPCS: 36415; 74018; 80053; 84439; 84443; 85025